=== PATIENT | female | born 1955 | race Caucasian/White ===

== ENCOUNTER → 2020-07-11 | Outpatient (CLI) | payer BC ==
[~2020-07-11] MED LIST: ASPI-630 PO; FLEC100T PO; METO-239 PO; OXYC1TAB19 PO
[2020-07-11 15:09] LABS: BASO % 0 % (0-3); EOS # 0.3 x10^3/uL (0.0-0.7); EOS % 5 % (0-3); HEMATOCRIT 38.7 % (36.0-47.0); HEMOGLOBIN 13.1 g/dL (12.0-15.5); LYMPH # 1.9 x10^3/uL (1.0-4.8); LYMPH % 26 % (24-48); MEAN CORPUSCULAR HEMOGLOBIN 29 pg (25-35); MEAN CORPUSCULAR HGB CONC 34 g/dL (31-37); MEAN CORPUSCULAR VOLUME 86 fL (79-100); MONO # 0.5 x10^3/uL (0.0-1.1); MONO % 7 % (0-9); NEUT # 4.4 x10^3/uL (1.8-7.7); NEUT % 61 % (31-73); PLATELET COUNT 289 x10^3/uL (140-400); RED BLOOD COUNT 4.51 x10^6/uL (3.50-5.40); RED CELL DISTRIBUTION WIDTH 14.4 % (11.5-14.5); WHITE BLOOD COUNT 7.1 x10^3/uL (4.0-11.0)
[2020-07-11 15:17] LABS: PROTHROMBIN TIME PATIENT 12.5 SEC (11.7-14.0)
[2020-07-11 15:58] LABS: ALBUMIN 3.7 g/dL (3.4-5.0); CREATININE 0.9 mg/dL (0.6-1.0); GFR 63.2; POTASSIUM 4.2 mmol/L (3.5-5.1); TOTAL BILIRUBIN 0.3 mg/dL (0.2-1.0); TOTAL PROTEIN 7.4 g/dL (6.4-8.2)
== END | disposition home or self-care (01) ==
LOC: LAB 13:37
PROVIDERS: ATTEND Specialist
DX: Z01.818 Encounter for other preprocedural examination (principal); Z11.59 Encounter for screening for other viral diseases
CPT/HCPCS: 80053; 85025; 85610; 85730; U0003

== ENCOUNTER 2020-07-18 11:40 | Day surgery (SDC) | payer BC ==
--- NOTE | 2020-07-18 06:46 | HP ---
ADMIT DATE: HISTORY OF PRESENT ILLNESS: The patient is referred to me by ____ for a biopsy-proven melanoma of the right shank. Apparently, the lesion has been there for some time, enlarging and she had a biopsy that she sent to me for a wider excision so we could completely remove it. The patient otherwise is healthy and doing relatively well. PAST MEDICAL HISTORY: Shows she has had normal childhood diseases. She does have a history of atrial fibrillation, does not take it now and takes medicine for that. She also has a heart murmur, which she has had since childhood and her other siblings also have some heart murmur, though there is no history of heart disease. PAST SURGICAL HISTORY: She has only had a laparoscopic surgery for endometriosis and no other surgery. SOCIAL HISTORY: Shows that she does not smoke, drink, or use illicit drugs. FAMILY HISTORY: Positive for cancer of the skin in the siblings and other relatives. REVIEW OF SYSTEMS: Otherwise negative. PHYSICAL EXAMINATION: GENERAL: Shows an alert female in no acute distress. HEAD, EYES, NOSE, AND THROAT: Grossly normal. CHEST: Clear bilaterally to auscultation. HEART: Did have a regular rate of 72 beats per minute. There was a murmur heard at the mitral area and the aortic area about 2-3/6 systolic murmur. She had no other abnormalities in the heart that would be monitored for. ABDOMEN: Not examined nor were the breasts. EXTREMITIES: Negative except for the right shank. In the lateral mid shank, there is about 1.5 to 2 cm mass in the skin as she has discoloration of the mass. This has been biopsied and proved to be melanoma. There is no evidence or induration or other abnormalities of the lesion other than the flat brownish colored lesion in the skin, which is not raised and is not black, but the biopsy done did show it to be a melanoma. IMPRESSION: 1. Heart murmur, etiology undetermined. 2. History of atrial fibrillation. 3. Skin tumor, right shank. BRANDON MÉNDEZ MD DR: FRANCHESKA/adriel JOB#: [id number] / [id number]
[~2020-07-18 11:40] MED LIST changes: -ASPI-630 PO; -FLEC100T PO; +HYDROmorphone 2 MG/ML VIAL IV PRN; -METO-239 PO; +MORPHINE SULFATE 2 MG/ML VIAL. IV PRN; +ONDANSETRON PF 4 MG/2 ML VIAL. IV PRN; -OXYC1TAB19 PO; +PROCHLORPERAZINE 10 MG/2 ML VIAL. IV PRN; +fentaNYL PF VIAL 100 MCG/2 ML VIAL IV PRN
[2020-07-18] MEDS ORDERED: AMPICILLIN SODIUM 1 GM in IV NORMAL SALINE 50ML 50 ML IV ONE (11:45)
[2020-07-18] MEDS ORDERED: ASPI-630 PO (11:45)
[2020-07-18] MEDS ORDERED: METO-239 PO (11:45)
[2020-07-18] MEDS ORDERED: FLEC100T PO (11:45)
[2020-07-18] MEDS: IV RINGERS,LACTATED 1000ML 1,000 ML IV SCH ×2 (12:12→16:21)
[2020-07-18] MEDS ORDERED: BUPIVACAINE-EPI 0.5%-1:200000 MPF 30 ML VIAL. ONE (14:23)
--- NOTE | 2020-07-18 14:52 | PDOC ---
SURGICAL PROGRESS NOTE DATE: 07/18/20 TIME: 14:51 No change in dictated H&P. Vital Signs Vital Signs Date Time Temp Pulse Resp B/P (MAP) Pulse Ox O2 Delivery O2 Flow Rate FiO2 07/18/20 12:09 97.3 73 20 98 97.3 07/18/20 11:56 121/60 Room Air Justicifation of Admission Dx: Justifications for Admission: Justification of Admission Dx: Yes BRANDON MÉNDEZ MD Jul 18, 2020 14:52
--- NOTE | 2020-07-18 14:54 | PDOC ---
SURGICAL PROGRESS NOTE DATE: 07/18/20 TIME: 14:52 Op NOte: Surgeon.................................................Méndez Pre op diag.............................................mass right shank Post op diag...........................................same...melanoma Anesthesia.............................................general Procedure.............................................excision mass right shank Drains..................................................none Fluids...................................................see anesth. sheet Blood loss.............................................15cc Condition..............................................satisfactory Vital Signs Vital Signs Date Time Temp Pulse Resp B/P (MAP) Pulse Ox O2 Delivery O2 Flow Rate FiO2 07/18/20 12:09 97.3 73 20 98 97.3 07/18/20 11:56 121/60 Room Air Justicifation of Admission Dx: Justifications for Admission: Justification of Admission Dx: Yes BRANDON MÉNDEZ MD Jul 18, 2020 14:54
[2020-07-18] MEDS ORDERED: DEXAMETHASONE SOD PHOS 4 MG/ML VIAL ONE (15:01)
[2020-07-18] MEDS ORDERED: LIDOCAINE 2% PF 5 ML VIAL. ONE (15:01)
[2020-07-18] MEDS ORDERED: PROPOFOL 10 MG/ML (20ML) VIAL. IV ONE ×2 (15:01→15:15)
[2020-07-18] MEDS ORDERED: ONDANSETRON PF 4 MG/2 ML VIAL. ONE (15:01)
[2020-07-18] MEDS ORDERED: ePHEDrine PF IN SALINE 50 MG/10 ML SYRINGE. IV ONE (15:16)
[2020-07-18] MEDS ORDERED: fentaNYL PF VIAL 100 MCG/2 ML VIAL ONE (15:39)
--- NOTE | 2020-07-18 15:54 | DISCH ---
DISCHARGE INSTRUCTIONS Condition on Discharge Condition on Discharge: Stable Activity After Discharge Activity Instructions for Disc: Avoid exertion Diet after Discharge Diet after Discharge: Clear Liquid Wound Incision Care Wound/Incision Care: Other, see below Other wound/incision instructi: may shower...do not change dressin unless absolutely necessary Follow-Up Follow up with: Noe galeana.Mallory.10-`4 days...call and make appointment BRANDON GALEANA MD Jul 18, 2020 15:54
[2020-07-18] MEDS ORDERED: OXYC1TAB19 PO (16:15)
[2020-07-18] MEDS ORDERED: oxyCODONE/APAP 7.5/325 1 TAB TABLET PO ONE (16:15)
[2020-07-18 16:50] VITALS: BP 117/46
--- NOTE | 2020-07-19 | OP ---
DATE OF SURGERY: 07/18/2020 SURGEON: Parth Méndez MD PREOPERATIVE DIAGNOSIS: Biopsy-proven melanoma of the right lateral shank. POSTOPERATIVE DIAGNOSIS: Biopsy-proven melanoma of the right lateral shank. ANESTHESIA: General. PROCEDURE: Wide excision of melanoma of the right shank. TECHNIQUE: Under general anesthesia, the patient was properly prepped and draped in a routine fashion. The lesion being about 1/2 inch or more in size at the mid right lateral shank. We decided to make a longitudinal incision. We used a fusiform incision going at least 1 cm or more around the lesion in all directions. The incision was longitudinal. A fusiform incision was made with a 15 blade, carried down through the skin. We then pulled up on the edge of the inferior ridge, and then using sharp dissection with Metzenbaum scissors and cautery, we went into the subcutaneous and divided the tissue from the subcutaneous tissues. We did go under the lesion and went down to the fascia so that we got all the deep and wide margins around this tumor. The resultant defect was inspected. We did undermine over the fascia, some of the subcutaneous, so we could close it without much tension. A 3-0 Vicryl was then used to approximate the subcutaneous and deep dermis and we did this interruptedly so that there would be good strong closure. The skin was closed using interrupted 4-0 nylon. The wound was inspected. There was no further bleeding. It should be noted that cautery was used also for some of the dissection. The wound now having been closed, procedure completed, and the lesion sent to pathology, we then placed a Tegaderm dressing over the wound and the procedure was terminated. The blood loss was probably about 5 mL. Fluids given can be obtained from the anesthesia sheet. No drains were used. The condition of the patient was satisfactory as she has returned to the recovery room. PARTH MÉNDEZ MD DR: FRANCHESKA/adriel JOB#: [id number] / [id number]
== END 2020-07-18 17:52 | disposition home or self-care (01) ==
LOC: SURG 11:40 → EDUNIT# 14:30 → SURG 17:52
PROVIDERS: ATTEND Specialist
DX: C43.71 Malignant melanoma of right lower limb, including hip (principal); I48.91 Unspecified atrial fibrillation; R01.1 Cardiac murmur, unspecified; D23.71 Other benign neoplasm of skin of right lower limb, including hip; Z79.82 Long term (current) use of aspirin; Z79.899 Other long term (current) drug therapy
CPT/HCPCS: 27618; A7015; J0290; J1100; J2405; J2704; J3010; J7120